=== PATIENT | female | born 1970 | race Caucasian/White ===

== ENCOUNTER 2022-11-19 17:00 | Emergency (ER) | payer OTHER ==
[2022-11-19 17:07] VITALS: BP 127/57; PULSE 76; RESP 18; TEMP 98; BMI 33.4
[2022-11-19] MEDS ORDERED: AMOX TR/POT CLAV 875MG/125MG TABLETS (FP) PO ONE (20:48)
[2022-11-19] MEDS ORDERED: AMOX TR/POT CLAV 875MG/125MG TABLETS (FP) ONE (20:48)
== END 2022-11-19 20:51 | disposition home or self-care (01) ==
LOC: JERFT 17:00
DX: M79.671 Pain in right foot (principal); M79.5 Residual foreign body in soft tissue
CPT/HCPCS: 73630-TC-RT-FY; 84703; 99284-25